=== PATIENT | female | born 1955 ===

== ENCOUNTER 2024-04-11 09:54 | Observation (INO) ==
[~2024-04-11 09:54] MED LIST: Naloxone 0.4 mg VIAL 0.4 mg/ml 1 ml VIAL IV PRN; Ondansetron 4 mg VIAL 2 MG/ML 2 ml VIAL IV PRN; fentaNYL 100 mcg/2 ml 50 MCG/ML VIAL IV PRN
[2024-04-11] MEDS ORDERED: Chlorhexidine MOUTHWASH 0.12% 15 ML UDC ONE (10:28)
[2024-04-11] MEDS ORDERED: Buffered Lidocaine 1% SYRIN 1 ml ONE (10:47)
[2024-04-11] MEDS ORDERED: ceFAZolin 2 GM PREMIX 2 GM/50 ML BAG ONE (10:47)
[2024-04-11] MEDS ORDERED: Lidocaine 2% PF 5 ML VIAL ONE (10:49)
[2024-04-11] MEDS ORDERED: Propofol 10 MG/ML 20 ML BTL ONE (10:49)
[2024-04-11] MEDS ORDERED: Rocuronium 50 mg VIAL 10 mg/ml 5 ml VIAL (50 mg) ONE ×2 (10:50→13:17)
[2024-04-11] MEDS ORDERED: fentaNYL 100 mcg/2 ml 50 MCG/ML VIAL ONE (10:50)
[2024-04-11] MEDS ORDERED: Midazolam 2 mg/2 ml VIAL 1 mg/ml 2 ml VIAL (2 mg) ONE (10:50)
[2024-04-11 10:58] LABS: Rapid COVID-19 Molecular Undetected (Undetected)
[2024-04-11] MEDS: Buffered Lidocaine 1% SYRIN 1 ml INTRADERM ONE (11:29)
[2024-04-11] MEDS: Lactated Ringers 1000 ml BAG 1,000 ML IV SCH ×2 (11:30→18:43)
[2024-04-11 12:00] LABS: Calcium 9.9 mg/dL (8.6-10.3); Creatinine, Serum 1.42 mg/dL (0.51-0.95); eGFR CKD-EPI 39.8 (>60)
[2024-04-11] MEDS ORDERED: Gelfoam Sponge SIZE 100 SPONGE ONE (13:16)
[2024-04-11] MEDS ORDERED: Thrombin 5,000 UNITS 1 APPLIC KIT - topical use - TOPICAL ONE (13:16)
[2024-04-11] MEDS ORDERED: Lidocaine 1% w EPI 1:100,000 MDV 20 ML VIAL ONE (13:16)
[2024-04-11] MEDS ORDERED: ceFAZolin VIAL VIAL ONE (13:16)
[2024-04-11] MEDS ORDERED: Dexamethasone IV 4 MG/ML VIAL 1 ml VIAL ONE (14:18)
[2024-04-11] MEDS ORDERED: Ondansetron 4 mg VIAL 2 MG/ML 2 ml VIAL ONE (14:18)
[2024-04-11] MEDS ORDERED: Morphine 2 MG/ML SYRINGE IV PRN (16:03)
[2024-04-11] MEDS ORDERED: Phenol 1.4% Throat Spray BTL MT PRN (16:03)
[2024-04-11] MEDS ORDERED: Dextran 70/Hypromellose Tears Eye Drops 15 ml BTL (for Artificials Tears) BOTH EYES PRN (16:03)
[2024-04-11] MEDS ORDERED: Benzocaine/Menthol LOZ MT PRN (16:03)
[2024-04-11] MEDS ORDERED: Senna TAB 8.6 mg TAB PO PRN (16:03)
[2024-04-11] MEDS ORDERED: Ondansetron 4 mg VIAL 2 MG/ML 2 ml VIAL IV PRN (16:03)
[2024-04-11] MEDS ORDERED: Potassium Chlor 10 meq TAB PO PRN (18:54)
[2024-04-11] MEDS: Insulin GLARGINE 100 un/ml 10 ml VIAL SUBCUT SCH (20:57)
[2024-04-11] MEDS: oxyCODONE SR 10 mg TAB PO SCH (20:58)
[2024-04-12] MEDS: Insulin GLARGINE 100 un/ml 10 ml VIAL SUBCUT SCH (08:37)
[2024-04-12] MEDS: Amphetamine MIXED SALT 10mgTAB PO SCH (08:39)
[2024-04-12] MEDS: Sulfamethox/Trimethoprim SS TAB 400/80 mg PO SCH (08:40)
[2024-04-12 10:06] VITALS: BP 128/113
== END 2024-04-12 11:10 | disposition home or self-care (01) ==
LOC: OR 09:54 → SSU 09:54
PROVIDERS: ADMIT Neurological Surgery; ATTEND Neurological Surgery